=== PATIENT | male | born 1995 | race Caucasian/White ===

== ENCOUNTER 2018-07-19 00:29 | Emergency (ER) | payer OTHER ==
--- NOTE | 2018-07-19 00:55 | ER Document Report ---
HPI - HPI Patient complains to provider of: forehead laceration Time Seen by Provider: 07/19/18 00:51 Onset: This evening Onset/Duration: Sudden Quality of pain: Achy Pain Level: 2 Context: Patient presents to emergency department with complaints of laceration to the middle of his forehead. Patient reports he was hanging [employer] lights when he fell and hit his forehead on the way down. Denies change in LOC. Reports he tried glue from [employer] but it did not work. Denies other symptoms such as fever nausea vomiting diarrhea. Drove himself here. Associated Symptoms: None Exacerbated by: Denies Relieved by: Denies Similar symptoms previously: No Recently seen / treated by doctor: No Past Medical History - General Information source: Patient - Social History Smoking Status: Current Some Day Smoker Cigarette use (# per day): Yes Frequency of alcohol use: None Drug Abuse: None Occupation: [employer] [place] Family History: None Patient has suicidal ideation: No Patient has homicidal ideation: No - Medical History Medical History: Negative Surgical Hx: Negative Vertical Provider Document - CONSTITUTIONAL Agree With Documented VS: Yes Exam Limitations: No Limitations General Appearance: WD/WN, No Apparent Distress - INFECTION CONTROL TRAVEL OUTSIDE OF THE [place] IN LAST 30 DAYS: No - HEENT HEENT: Normocephalic - NECK Neck: Supple - RESPIRATORY Respiratory: Breath Sounds Normal, No Respiratory Distress - CARDIOVASCULAR Cardiovascular: Regular Rate - MUSCULOSKELETAL/EXTREMETIES Musculoskeletal/Extremeties: MAEW, FROM - NEURO Level of Consciousness: Awake, Alert, Appropriate Motor/Sensory: No Motor Deficit - DERM Integumentary: Warm, Dry, Laceration - L SHAPE laceration to mid forehead near hairline, closed, well approximated, no active bleeding Course - Re-evaluation Re-evalutation: 07/19/18 01:37 Dermabond applied after well cleaned site well approximated. Patient instructed on signs and symptoms of infection. Instructed follow-up with his bAS. Dictation of this chart was performed using voice recognition software; therefore, there may be some unintended grammatical errors. Procedures - Laceration/Wound Repair forehead Wound length (cm): 1 - L shape Wound's Depth, Shape: Superficial Laceration pre-procedure: Shur-Clens applied Wound Repaired With: Dermabond Post-procedure NV exam normal: Yes Complications: No Adult Head Front/Back picture: 1 - L SHAPE 2 - L SHAPE, 1 CM Discharge - Discharge Clinical Impression: Forehead laceration Qualifiers: Encounter type: initial encounter Qualified Code(s): S01.81XA - Laceration without foreign body of other part of head, initial encounter Condition: Stable Disposition: HOME, SELF-CARE Instructions: Skin Adhesive Closure ([facility]) Additional Instructions: *You have been treated for a laceration with dermabond closure *Monitor the site for signs of infection such as increasing pain, redness, swelling, warmth *Keep the area clean *Follow up with your BAS tomorrow for a recheck *Avoid the sun, use sunblock to minimize a scar *Return to ED for signs of infection, worsening condition, changes, needs
[2018-07-19 01:50] VITALS: BP 135/67
== END 2018-07-19 01:53 | disposition home or self-care (01) ==
LOC: ER 00:29
DX: S01.81XA Laceration without foreign body of other part of head, initial encounter (principal); W19.XXXA Unspecified fall, initial encounter; Y93.89 Activity, other specified; Y92.009 Unspecified place in unspecified non-institutional (private) residence as the place of occurrence of the external cause; F17.210 Nicotine dependence, cigarettes, uncomplicated
CPT/HCPCS: 99283